=== PATIENT | female | born 1940 | race Caucasian/White ===

== ENCOUNTER 2020-02-14 14:46 | Inpatient (IN) | payer MEDICARE, MEDICAID ==
[~2020-02-14] VITALS: Ht 165.1 cm; Wt 76.0 kg
[~2020-02-14 14:46] MED LIST: ALBU8HFA PO; ALPR-624 PO; BUPR150T8 PO; DOCU-28 PO; ESOM40CA49 PO; HYDR-4353 PO; LEVO25TA7 PO; LORA10TA7 PO; POTA10CA44 PO; QUET50TA PO; TRAZ-256 PO
[2020-02-14] MEDS ORDERED: LORazepam 2 mg/ml vial IV ONE ×2 (16:10→22:00)
[2020-02-14] MEDS ORDERED: metoprolol tartrate 1mg/ml inj IV ONE (16:10)
--- NOTE | 2020-02-14 16:22 | NUR ---
PA does not believe that pt is septic, states to give Ativan and Metoprolol per MAR. Pt agreeable to this.
[2020-02-14 16:26] LABS: BASOPHILS # (AUTO) 0.1 X10'3 (0-0.2); EOSINOPHILS # (AUTO) 0.1 X10'3 (0-0.9); MEAN CORPUSCULAR VOLUME 93.2 FL (78-98); NEUTROPHILS # (AUTO) 7.6 X10'3 (1.8-7.7); WHITE BLOOD COUNT 9.6 X10'3 (4.5-11.0)
[2020-02-14 16:28] LABS: BASOPHILS % (AUTO) 1.5 % (0-1); EOSINOPHILS % (AUTO) 0.8 % (0-6); HEMATOCRIT 41.1 % (35.0-45.0); HEMOGLOBIN 13.5 g/dl (12.0-16.0); LYMPHOCYTES % (AUTO) 10.3 % (21-51); MEAN CORPUSCULAR HEMOGLOBIN 30.7 PG (27.0-31.0); MEAN CORPUSCULAR HGB CONC 32.9 g/dL (33.0-36.5); MEAN PLATELET VOLUME 8.2 FL (7.4-10.4); MONOCYTES # (AUTO) 0.8 X10'3 (0-0.9); MONOCYTES % (AUTO) 8.4 % (2-12); PLATELET COUNT 361 X10'3 (140-440); RED BLOOD COUNT 4.41 X10'6 (4.20-5.60); RED CELL DISTRIBUTION WIDTH 15.4 % (11.5-14.5)
[2020-02-14 16:43] LABS: ALANINE AMINOTRANSFERASE 22 U/L (12-78); ALBUMIN 2.5 G/DL (3.4-5.0); ALBUMIN/GLOBULIN RATIO 0.7 (1.1-1.5); ALKALINE PHOSPHATASE 66 IU/L (46-116); ANION GAP 6 (8-16); ASPARTATE AMINO TRANSFERASE 29 U/L (10-37); BILIRUBIN,TOTAL 0.4 MG/DL (0.1-1.0); BLOOD UREA NITROGEN 18 MG/DL (7-18); BUN/CREATININE RATIO 19.6 (6.6-38.0); CALCIUM 8.6 MG/DL (8.5-10.1); CHLORIDE 102 MMOL/L (99-107); CREATININE 0.92 MG/DL (0.40-0.90); GLUCOSE 114 MG/DL (70-104); SODIUM 135 MMOL/L (135-145); TOTAL CARBON DIOXIDE 26.9 MMOL/L (24-32); eGFR 59 ML/MIN
[2020-02-14 17:04] LABS: D-DIMER 0.48 MG/L FEU (0-0.50)
--- NOTE | 2020-02-14 17:05 | NUR ---
PA notified of continued HR
[2020-02-14] MEDS ORDERED: diltiazem 5mg/ml 5ml inj. IV ONE (17:10)
[2020-02-14] MEDS ORDERED: LEVO150T8 PO (17:35)
[2020-02-14] MEDS ORDERED: TRAZ-251 PO (17:35)
[2020-02-14] MEDS ORDERED: SERT-153 PO (17:46)
[2020-02-14] MEDS ORDERED: METO-467 PO (17:46)
[2020-02-14] MEDS ORDERED: LEVO125T PO (17:46)
[2020-02-14] MEDS ORDERED: ACET325T55 PO (17:46)
[2020-02-14] MEDS ORDERED: DICL100G15 TOP (17:46)
[2020-02-14] MEDS ORDERED: COLL30OI TOP (17:46)
[2020-02-14] MEDS ORDERED: NYSPWD TP (17:46)
[2020-02-14] MEDS ORDERED: DIO80T PO (17:46)
[2020-02-14] MEDS ORDERED: ONDA4TAB6 PO (17:46)
[2020-02-14] MEDS ORDERED: PANT-47 PO (17:46)
[2020-02-14] MEDS ORDERED: AMLO5TAB4 PO (17:46)
[2020-02-14] MEDS ORDERED: ATR0.5NEB NEB (17:46)
[2020-02-14] MEDS ORDERED: POLY119P2 PO (17:46)
[2020-02-14] MEDS ORDERED: magnesium 2GM in 50ml NS 50 ML IV PRN (18:00)
[2020-02-14] MEDS ORDERED: potassium Cl 20 mEq SR tablet PO PRN ×2 (18:00)
[2020-02-14] MEDS ORDERED: acetaminophen 325mg tablet PO PRN (18:00)
[2020-02-14] MEDS ORDERED: magnesium 4gm in 100ml NS 100 ML IV PRN (18:00)
[2020-02-14] MEDS ORDERED: potassium CL 10mEq/100ml bag 100 ML IV PRN ×2 (18:00)
[2020-02-14] MEDS ORDERED: magnesium Cl slow-release 64mg tablet PO PRN (18:00)
[2020-02-14] MEDS ORDERED: ondansetron/PF 4mg/2ml inj IV PRN (18:00)
[2020-02-14] MEDS: diltiazem-NS 100mg/100ml 100 ML IV SCH (18:06)
[2020-02-14 18:38] LABS: PLATELET ESTIMATE NORMAL; TOTAL CELLS COUNTED 100
[2020-02-14 18:39] LABS: LARGE PLATELETS FEW
[2020-02-14] MEDS: K and/or MAG REPLACEMENT MC SCH (20:00)
[2020-02-14 20:50] VITALS: BP 105/88
--- NOTE | 2020-02-14 21:11 | NUR ---
Paged Dr. Prieto. PAGER ID: [phone] MESSAGE: This is Delfina from [facility] x [phone]. Pt Karlee Corea 80 F Dx : Afib/Aflutter with RVR is asking for pain med and med to calm her down. Thanks!
--- NOTE | 2020-02-14 21:53 | NUR ---
Paged Dr. Prieto PAGER ID: [phone] MESSAGE: This is Delfina from [facility] x [phone]. Pt Karlee Corae 80 F Dx : Afib/Aflutter with RVR is wheezing throughout. Can we get an order for breathing treatment. I would also like to follow up the pain & anxiety med of the pt. Thanks!
--- NOTE | 2020-02-14 21:59 | NUR ---
Pt is wheezing, and obtained an order from MD for breathing tx. RT paged.
[2020-02-14 22:00] VITALS: BP 107/87
[2020-02-15 02:00] VITALS: BP 150/91
[2020-02-15 04:12] LABS: BASOPHILS % (AUTO) 0.4 % (0-1); EOSINOPHILS % (AUTO) 0.5 % (0-6); HEMATOCRIT 39.5 % (35.0-45.0); HEMOGLOBIN 13.2 g/dl (12.0-16.0); LYMPHOCYTES # (AUTO) 0.8 X10'3 (1.1-4.8); MEAN CORPUSCULAR HGB CONC 33.5 g/dL (33.0-36.5); MEAN CORPUSCULAR VOLUME 92.6 FL (78-98); MEAN PLATELET VOLUME 7.9 FL (7.4-10.4); MONOCYTES # (AUTO) 0.7 X10'3 (0-0.9); MONOCYTES % (AUTO) 8.1 % (2-12); NEUTROPHILS # (AUTO) 6.9 X10'3 (1.8-7.7); PLATELET COUNT 346 X10'3 (140-440); RED BLOOD COUNT 4.26 X10'6 (4.20-5.60); RED CELL DISTRIBUTION WIDTH 15.2 % (11.5-14.5); WHITE BLOOD COUNT 8.4 X10'3 (4.5-11.0)
[2020-02-15 04:25] LABS: ALBUMIN 2.5 G/DL (3.4-5.0); ANION GAP 9 (8-16); BLOOD UREA NITROGEN 17 MG/DL (7-18); BUN/CREATININE RATIO 19.3 (6.6-38.0); CALCIUM 8.8 MG/DL (8.5-10.1); CHLORIDE 102 MMOL/L (99-107); CREATININE 0.88 MG/DL (0.40-0.90); GLUCOSE 96 MG/DL (70-104); MAGNESIUM 1.7 MG/DL (1.5-2.4); POTASSIUM 4.2 MMOL/L (3.5-5.1); SODIUM 137 MMOL/L (135-145); TOTAL CARBON DIOXIDE 25.8 MMOL/L (24-32); eGFR 62 ML/MIN
[2020-02-15 06:00] VITALS: BP 142/78
--- NOTE | 2020-02-15 06:00 | NUR ---
Patient in room PCU 3025. I have received report from Marlene STEELE, and had the opportunity to ask questions and assume patient care.
--- NOTE | 2020-02-15 06:25 | NUR ---
Patient in room PCU 3025. I have received report from Delfina STEELE and had the opportunity to ask questions and assume patient care.
--- NOTE | 2020-02-15 06:28 | NUR ---
Problems reprioritized. Patient report given, questions answered & plan of care reviewed with CEDRIC Wallace.
--- NOTE | 2020-02-15 07:47 | NUR ---
PAGER ID: [phone] MESSAGE: TELE: Patient Karlee Corea. RM #[id number]. Home meds have been reviewed and awaiting your approval. CARMEN Sher #[id number]. Thank you Patients home medications have been reviewed by pharmacy and awaiting review from .
[2020-02-15] MEDS: K and/or MAG REPLACEMENT MC SCH ×2 (08:00→18:42)
[2020-02-15] MEDS ORDERED: polyethylene glycol 3350 17gm powd pack PO PRN (08:05)
[2020-02-15] MEDS ORDERED: ipratropium 0.5 MG/2.5ML nebule NEB PRN (08:05)
[2020-02-15] MEDS ORDERED: Diclofenac Sodium (Voltaren) TP PRN (08:20)
[2020-02-15] MEDS: diltiazem 30mg tablet PO SCH ×4 (08:31→20:06)
[2020-02-15] MEDS: levoTHYROXINE 125mcg tablet PO SCH (09:04)
[2020-02-15] MEDS: pantoprazole 40mg Tablet.DR PO SCH (09:04)
[2020-02-15] MEDS: nystatin 15 GM powder TP SCH (09:05)
[2020-02-15] MEDS: amLODIPine 5mg tablet PO SCH (09:05)
[2020-02-15] MEDS: HYDROcodone/acetaminophen 10/325mg tab PO PRN ×2 (09:25→20:06)
--- NOTE | 2020-02-15 09:56 | NUR ---
PAGER ID: [phone] MESSAGE: TELE: SURESH CRAFT. RM# [id number]. PATIENT HAS 0831 60MG/ PO/ CARDIZEM, ON eMAR. DO YOU WANT ME TO ADMINISTER THIS PO AND DC CARDIZEM DRIP THAT IS CURRENTLY RUNNING 1HR LATER? IRLANDA EX# [id number] (189 character message out of a maximum of 240) NOTIFIED REGARDING CARDIZEM DRIP/PO
[2020-02-15 11:00] VITALS: BP 118/61
[2020-02-15] MEDS: ondansetron 4mg rapidly disintigrating tab PO SCH ×2 (11:07→16:39)
[2020-02-15] MEDS: ALPRAZolam 0.5mg tablet PO SCH ×2 (12:29→20:06)
[2020-02-15] MEDS: diltiazem-NS 100mg/100ml 100 ML IV SCH (12:58)
--- NOTE | 2020-02-15 13:26 | NUR ---
PAGER ID: [phone] MESSAGE: TELE: ALETHEA GUILLEN. RM# [id number]. WOUND CARE WOULD LIKE A CULTURE OF PATIENTS COCCYX WOUND. CAN I PUT THE ORDER IN? IRLANDA EX# [id number] WOUND CARE IS REQUESTING CULTURE OF PATIENTS COCCYX WOUND. HAS BEEN NOTIFIED. WAITING ON APPROVAL.
[2020-02-15 15:00] VITALS: BP 122/59
--- NOTE | 2020-02-15 15:00 | NUR ---
OPTI-FOAM CHANGED ON COCCYX, AND ALGENATE APPLIED WELL. PER WOUND NURSE.
--- NOTE | 2020-02-15 15:27 | NUR ---
PAGER ID: [phone] MESSAGE: Re: Nahomy Karlee. Room: [facility] [place]. Wound care wants a culture of pressure ulcer on coccyx. Can I put order in for wound culture? -Rodrigo [facility] #[id number] Dr. Crisostomo paged concerning wound culture order.
--- NOTE | 2020-02-15 17:00 | NUR ---
PAGER ID: [phone] MESSAGE: Re: Karlee Herbert. Room: [facility]. Pt went back into A-fib with RVR, HR: 115-140's. BP: 120/70 Pt not symptomatic. Pt's total output for day is 250ml. -Rodrigo [facility] #[id number] Dr. Crisostomo paged concerning Pt going back into A-fib with RVR
[2020-02-15] MEDS ORDERED: meclizine 12.5mg tablet PO PRN (17:55)
[2020-02-15 18:00] VITALS: BP 106/69
--- NOTE | 2020-02-15 18:00 | NUR ---
Orientee documentation: I have reviewed and agree with all interventions, assessments performed and documented by Nikky STEELE.
[2020-02-15] MEDS: normal saline 1000ml 1,000 ML IV SCH (18:01)
--- NOTE | 2020-02-15 18:19 | NUR ---
Problems reprioritized. Patient report given, questions answered & plan of care reviewed with Xin STEEEL.
[2020-02-15] MEDS: meclizine 12.5mg tablet PO SCH (20:06)
[2020-02-15] MEDS: metoprolol tartrate 50mg tablet PO SCH (20:06)
[2020-02-15] MEDS ORDERED: sertraline 50mg tablet PO SCH (21:00)
[2020-02-15 22:00] VITALS: BP 121/65
[2020-02-16] VITALS (8 sets, daily range): BP systolic 93–121; BP diastolic 50–73
[2020-02-16] MEDS: HYDROcodone/acetaminophen 10/325mg tab PO PRN ×2 (01:08→09:37)
--- NOTE | 2020-02-16 06:00 | NUR ---
Patient in room PCU 3025. I have received report from GONSALO and had the opportunity to ask questions and assume patient care.
--- NOTE | 2020-02-16 06:15 | NUR ---
Patient in room PCU 3025. I have received report from Xin STEELE and had the opportunity to ask questions and assume patient care.
[2020-02-16 07:29] LABS: BASOPHILS # (AUTO) 0.1 X10'3 (0-0.2); BASOPHILS % (AUTO) 1.2 % (0-1); EOSINOPHILS # (AUTO) 0.1 X10'3 (0-0.9); EOSINOPHILS % (AUTO) 1.8 % (0-6); HEMATOCRIT 38.6 % (35.0-45.0); HEMOGLOBIN 12.9 g/dl (12.0-16.0); LYMPHOCYTES # (AUTO) 0.8 X10'3 (1.1-4.8); LYMPHOCYTES % (AUTO) 12.3 % (21-51); MEAN CORPUSCULAR HEMOGLOBIN 31.2 PG (27.0-31.0); MEAN CORPUSCULAR HGB CONC 33.5 g/dL (33.0-36.5); MEAN CORPUSCULAR VOLUME 93.2 FL (78-98); MONOCYTES # (AUTO) 0.7 X10'3 (0-0.9); MONOCYTES % (AUTO) 11.1 % (2-12); NEUTROPHILS # (AUTO) 4.9 X10'3 (1.8-7.7); NEUTROPHILS % (AUTO) 73.6 % (42-75); PLATELET COUNT 271 X10'3 (140-440); RED BLOOD COUNT 4.14 X10'6 (4.20-5.60); RED CELL DISTRIBUTION WIDTH 15.4 % (11.5-14.5); WHITE BLOOD COUNT 6.7 X10'3 (4.5-11.0)
[2020-02-16 07:45] LABS: ALBUMIN 2.4 G/DL (3.4-5.0); ANION GAP 7 (8-16); BLOOD UREA NITROGEN 21 MG/DL (7-18); BUN/CREATININE RATIO 21.2 (6.6-38.0); CALCIUM 8.6 MG/DL (8.5-10.1); CHLORIDE 105 MMOL/L (99-107); CREATININE 0.99 MG/DL (0.40-0.90); GLUCOSE 90 MG/DL (70-104); MAGNESIUM 1.6 MG/DL (1.5-2.4); POTASSIUM 4.1 MMOL/L (3.5-5.1); SODIUM 140 MMOL/L (135-145); TOTAL CARBON DIOXIDE 27.6 MMOL/L (24-32); eGFR 54 ML/MIN
[2020-02-16] MEDS ORDERED: losartan 50mg tablet PO SCH (08:00)
[2020-02-16] MEDS: K and/or MAG REPLACEMENT MC SCH (08:00)
[2020-02-16] MEDS: amLODIPine 5mg tablet PO SCH (08:00)
[2020-02-16] MEDS: Collagenase Oint* (Santyl Oint*) TP SCH ×2 (08:00→08:52)
[2020-02-16] MEDS: levoTHYROXINE 125mcg tablet PO SCH (08:16)
[2020-02-16] MEDS: diltiazem 30mg tablet PO SCH ×2 (08:16→12:50)
[2020-02-16] MEDS: nystatin 15 GM powder TP SCH (08:16)
[2020-02-16] MEDS: meclizine 12.5mg tablet PO SCH ×2 (08:17→12:49)
[2020-02-16] MEDS: ondansetron 4mg rapidly disintigrating tab PO SCH ×2 (08:17→12:03)
[2020-02-16] MEDS: ALPRAZolam 0.5mg tablet PO SCH ×2 (08:17→12:49)
[2020-02-16] MEDS: pantoprazole 40mg Tablet.DR PO SCH (08:17)
[2020-02-16] MEDS: metoprolol tartrate 50mg tablet PO SCH (10:16)
[2020-02-16] MEDS ORDERED: DILT30TA5 PO (10:47)
[2020-02-16] MEDS ORDERED: ASPI-1 PO (10:47)
--- NOTE | 2020-02-16 11:00 | NUR ---
Wound care presented at bedside to assess pt's wound. Pt gave verbal consent to be seen. Wound bed approx 25% slough, 75% red tissue. Bone can be felt beneath a thin layer in this unstageable pressure ulcer to coccyx. Cleansed with NS and dried. Applied therahoney and silver alginate packing lightly to wound and depth. Covered with occlusive optifoam dressing. Recommend changing Q2D and PRN soiling/displacement.
--- NOTE | 2020-02-16 12:39 | NUR ---
Spoke with Dr. Crisostomo concerning Pt's BP's. Per Dr. Crisostomo: Hold PO Cardizem if SBP below 90. Hold Metoprolol PO if HR below 70.
[2020-02-16] MEDS: normal saline 1000ml 1,000 ML IV SCH (13:55)
--- NOTE | 2020-02-16 15:00 | NUR ---
Orientee documentation: I have reviewed and agree with all interventions, assessments performed and documented by Nikky STEELE.
--- NOTE | 2020-02-16 15:20 | NUR ---
PATIENT LEFT FACILITY AT 1510 VIA [facility] CARGO ON A GURNEY. 20 GAUGE IV REMAINED IN RIGHT LOWER ARM, SALINE LOCKED. TELE BOX WAS REMOVED, ALL PERSONAL ITEMS WHERE WITH PATIENT UNDER GURNEY. 16 FR VARELA CATHETER WAS IN PLACE ( CATHETER WAS IN PLACE ON ADMISSION FROM [facility]). REPORT WAS CALLED INTO [facility] AT 1425 TO JERMAINE STEELE ON TCU.
== END 2020-02-16 15:17 | DRG 310 ==
LOC: ER 14:46 → ED HOLD 18:00 → PCU 3S 20:40
PROVIDERS: ADMIT Internal Medicine; ATTEND Internal Medicine
DX: I48.0 Paroxysmal atrial fibrillation (principal); I48.92 Unspecified atrial flutter; I50.9 Heart failure, unspecified; E03.9 Hypothyroidism, unspecified; F32.9 Major depressive disorder, single episode, unspecified; F41.9 Anxiety disorder, unspecified; G89.29 Other chronic pain; I11.0 Hypertensive heart disease with heart failure; L89.150 Pressure ulcer of sacral region, unstageable; R00.0 Tachycardia, unspecified; Z79.82 Long term (current) use of aspirin; Z79.890 Hormone replacement therapy; Z91.81 History of falling; Z98.49 Cataract extraction status, unspecified eye; Z88.8 Allergy status to other drugs, medicaments and biological substances; Z90.49 Acquired absence of other specified parts of digestive tract; Z79.899 Other long term (current) drug therapy
CPT/HCPCS: 36415; 71045; 76937; 80048; 80053; 83735; 83880; 84443; 84484; 85007; 85025; 85379; 85610; 87070; 87075; 87076; 87077; 87081; 87185; 87186; 93005; 93306; 94760; 96365; 96375; 99285; G0378; J2060; J3490; J7030; J8597